=== PATIENT | male | born 1940 | race Caucasian/White ===

== ENCOUNTER 2022-11-17 08:23 | Observation (INO) | payer MEDICARE, BC ==
[2022-11-17 09:03] LABS: Hemoglobin 14.8 g/dL (13.5-17.5); Mean Corpuscular HGB CONC 34.7 g/dL (32.0-36.0); Mean Corpuscular Hemoglobin 31.1 pg (27.0-33.0); Mean Corpuscular Volume 89.7 fl (81.2-95.1); Mean Platelet Volume 9.6 fl (7.4-10.4); Platelet Count 214 10x3/uL (150-450); RBC Distribution Width 13.2 % (11.5-14.5); Red Blood Cell (RBC) Count 4.76 10x6/uL (4.32-5.72); White Blood Cell (WBC) Count 23.3 10x3/uL (3.5-10.5)
[2022-11-17 09:06] LABS: MDiff Complete? YES
[2022-11-17 09:22] LABS: ALT (SGPT) 20 U/L (8-55); AST (SGOT) 17 U/L (5-34); Albumin 4.1 g/dL (3.4-4.8); Alkaline Phosphatase 71 U/L (40-110); Anion Gap 13 mmol/L (10-20); BUN (Urea Nitrogen) 14 mg/dL (8.4-25.7); Bilirubin, Total 0.9 mg/dL (0.2-1.2); CK (CPK) 111 U/L (30-200); Calc. Creatinine Clearance 0 mL/min (70-130); Calcium 8.8 mg/dL (7.8-10.44); Carbon Dioxide 23 mmol/L (23-31); Chloride 105 mmol/L (98-107); Estimated GFR 71; Globulin 2.2 g/dL (2.4-3.5); Glucose 143 mg/dL (83-110); Lipase 34 U/L (8-78); Potassium 4.4 mmol/L (3.5-5.1); Protein, Total 6.3 g/dL (5.8-8.1); Sodium 137 mmol/L (136-145)
[2022-11-17 09:41] LABS: Band 1 % (5-11); Monocytes 2 % (0-10)
[2022-11-17 09:42] LABS: Lymphocytes 60 % (21-51); Neutrophil 36 % (42-75); Platelet Morphology Comment Appears Adequate
[2022-11-17 09:43] LABS: RBC Morphology Normal
[2022-11-17 10:35] LABS: Bilirubin Neg (Negative); Blood, Urine Negative (Negative); Clarity Clear (Clear); Glucose, Urine (Dipstick) Normal (Negative); Ketone, Urine Negative (Negative); Leukocyte Negative (Negative); Nitrite Negative (Negative); Protein, Urine (Dipstick) Negative (Neg-Trace); Urobilinogen Normal mg/dL (Less than 2)
[2022-11-17] MEDS ORDERED: Ondansetron ODT 4 MG TAB PO PRN (11:31)
[2022-11-17] MEDS ORDERED: Acetaminophen 325 MG TAB PO PRN (11:31)
[2022-11-17] MEDS ORDERED: Ondansetron PF 4 MG/2 ML Vial IVP PRN (11:31)
[2022-11-17 12:05] LABS: Magnesium 2.1 mg/dL (1.6-2.6)
[2022-11-17 12:10] LABS: Troponin I Less than 0.010 ng/mL (< 0.028)
[2022-11-17] MEDS ORDERED: Iopamidol 370 76% 100 ML VIAL ONE (13:40)
[2022-11-17 14:35] VITALS: BMI 26.6
[2022-11-17 15:41] LABS: SARS-CoV-2 NAA Rapid Test Not Detected (NotDetected)
[2022-11-17 17:19] LABS: Hemoglobin A1c 5.9 % (4.0-6.0)
[2022-11-18 05:56] LABS: Hemoglobin 13.6 g/dL (13.5-17.5); Mean Corpuscular HGB CONC 35.2 g/dL (32.0-36.0); Mean Corpuscular Hemoglobin 31.3 pg (27.0-33.0); Mean Corpuscular Volume 88.9 fl (81.2-95.1); Mean Platelet Volume 9.3 fl (7.4-10.4); Platelet Count 197 10x3/uL (150-450); RBC Distribution Width 13.4 % (11.5-14.5); Red Blood Cell (RBC) Count 4.34 10x6/uL (4.32-5.72); White Blood Cell (WBC) Count 14.6 10x3/uL (3.5-10.5)
[2022-11-18 05:57] LABS: MDiff Complete? YES
[2022-11-18 06:06] LABS: Anion Gap 10 mmol/L (10-20); BUN (Urea Nitrogen) 11 mg/dL (8.4-25.7); Calc. Creatinine Clearance 72 mL/min (70-130); Calcium 8.7 mg/dL (7.8-10.44); Carbon Dioxide 25 mmol/L (23-31); Chloride 107 mmol/L (98-107); Estimated GFR 86; Glucose 123 mg/dL (83-110); Potassium 3.9 mmol/L (3.5-5.1); Sodium 138 mmol/L (136-145)
[2022-11-18 06:21] LABS: Eosinophils 3 % (0-10); Lymphocytes 59 % (21-51); Monocytes 5 % (0-10); Neutrophil 33 % (42-75)
[2022-11-18] MEDS ORDERED: Amlodipine 5 MG TAB PO SCH (11:30)
[2022-11-18] MEDS ORDERED: Lisinopril 20 MG TAB PO SCH (11:30)
[2022-11-18] MEDS ORDERED: Iopamidol 370 76% 100 ML VIAL ONE (15:24)
[2022-11-18 16:56] VITALS: BP 156/64
[2022-11-18 18:07] VITALS: TEMP 97.7
[2022-11-19] MEDS ORDERED: Lisinopril 20 MG TAB PO SCH (09:00)
[2022-11-19] MEDS ORDERED: Amlodipine 5 MG TAB PO SCH (09:00)
== END 2022-11-18 18:00 | disposition home or self-care (01) ==
LOC: CSHERS 08:23 → CSHTELE 13:13
PROVIDERS: ADMIT Internal Medicine; ATTEND Hospitalist
DX: R42 Dizziness and giddiness (principal); I95.9 Hypotension, unspecified; R00.1 Bradycardia, unspecified; R73.9 Hyperglycemia, unspecified; D72.829 Elevated white blood cell count, unspecified; E04.1 Nontoxic single thyroid nodule; Z20.822 Contact with and (suspected) exposure to COVID-19
CPT/HCPCS: 0240U; 70498; 71045; 71275; 80048; 81003; 82550; 83036; 83605; 83690; 83735; 83880; 84484 ×2; 85025; 85379; 87040; 93005; 93306; 93880; 94760 ×3; 97116; 99285; G0378 ×3; 36415; 80053; 84443; Q9967

== ENCOUNTER 2023-09-01 09:17 | Inpatient (IN) | payer MEDICARE, BC ==
[2023-09-01 12:24] LABS: INR-International Normal Ratio 1.1; PTT 29.9 sec (22.0-33.0); Prothrombin Time 12.1 sec (9.5-12.1)
[2023-09-01 12:28] LABS: ALT (SGPT) 85 U/L (8-55); AST (SGOT) 49 U/L (5-34); Albumin 3.5 g/dL (3.4-4.8); Alkaline Phosphatase 65 U/L (40-110); Anion Gap 14 mmol/L (10-20); BUN (Urea Nitrogen) 28 mg/dL (8.4-25.7); Bilirubin, Total 1.1 mg/dL (0.2-1.2); Calc. Creatinine Clearance 0 mL/min (70-130); Calcium 8.4 mg/dL (7.8-10.44); Carbon Dioxide 20 mmol/L (23-31); Chloride 107 mmol/L (98-107); Estimated GFR 86; Globulin 2.1 g/dL (2.4-3.5); Glucose 97 mg/dL (83-110); Protein, Total 5.6 g/dL (5.8-8.1); Sodium 137 mmol/L (136-145)
[2023-09-01 12:33] LABS: Troponin I 0.125 ng/mL (< 0.028)
[2023-09-01 12:42] LABS: Hematocrit 34.4 % (38.8-50.0); Hemoglobin 11.8 g/dL (13.5-17.5); Mean Corpuscular HGB CONC 34.3 g/dL (32.0-36.0); Mean Corpuscular Hemoglobin 30.9 pg (27.0-33.0); Mean Corpuscular Volume 90.1 fl (81.2-95.1); Mean Platelet Volume 10.2 fl (7.4-10.4); Platelet Count 177 10x3/uL (150-450); RBC Distribution Width 13.2 % (11.5-14.5); Red Blood Cell (RBC) Count 3.82 10x6/uL (4.32-5.72)
[2023-09-01 12:43] LABS: MDiff Complete? YES
[2023-09-01] MEDS ORDERED: Ondansetron PF 4 MG/2 ML Vial IVP PRN (13:31)
[2023-09-01] MEDS ORDERED: Acetaminophen 325 MG TAB PO PRN (13:31)
[2023-09-01] MEDS ORDERED: Ondansetron ODT 4 MG TAB PO PRN (13:31)
[2023-09-01] MEDS ORDERED: Acetaminophen 650 MG Suppository PR PRN (13:31)
[2023-09-01 14:18] LABS: Band 11 % (5-11); Eosinophils 1 % (0-10); Lymphocytes 37 % (21-51); Monocytes 3 % (0-10); Neutrophil 40 % (42-75); Reactive Lymphocytes 8 % (0-10)
[2023-09-01 14:23] LABS: Microcytosis SLIGHT = 6-15 cells (100X) (0-5/hpf)
[2023-09-01 14:24] LABS: Large Platelets SLIGHT (None Seen); Platelet Adequacy Comment Appears Adequate; RBC Morph Comment Within Normal Limits
[2023-09-01] MEDS ORDERED: Apixaban 5 MG TAB PO SCH ×3 (15:00→23:00)
[2023-09-01 15:07] VITALS: BMI 26.3
[2023-09-01] MEDS: Cephalexin 500 MG CAP PO SCH ×2 (18:00→23:35)
[2023-09-01] MEDS: Doxycycline 100 MG CAP PO SCH (20:45)
[2023-09-01] MEDS: Famotidine 20 MG TAB PO SCH (20:45)
[2023-09-02 03:53] LABS: Anion Gap 12 mmol/L (10-20); BUN (Urea Nitrogen) 25 mg/dL (8.4-25.7); Calc. Creatinine Clearance 79 mL/min (70-130); Calcium 8.3 mg/dL (7.8-10.44); Carbon Dioxide 21 mmol/L (23-31); Chloride 108 mmol/L (98-107); Estimated GFR 89; Glucose 122 mg/dL (83-110); Potassium 3.9 mmol/L (3.5-5.1); Sodium 137 mmol/L (136-145)
[2023-09-02 03:58] LABS: #Eosinphils 0.1 10x3/uL (0.0-0.5); #Monocytes 1.3 10x3/uL (0.0-1.1); #Neutrophils 5.7 10x3/uL (1.5-8.4); %Basophils 0.3 % (0.0-2.0); %Eosinophils 0.9 % (0.0-6.0); %Lymphocytes 44.6 % (18.0-47.0); %Monocytes 10.2 % (0.0-10.0); %Neutrophils 43.6 % (40.0-75.0); Hematocrit 30.2 % (38.8-50.0); Hemoglobin 10.3 g/dL (13.5-17.5); Mean Corpuscular HGB CONC 34.1 g/dL (32.0-36.0); Mean Corpuscular Hemoglobin 31.1 pg (27.0-33.0); Mean Corpuscular Volume 91.2 fl (81.2-95.1); Mean Platelet Volume 10.5 fl (7.4-10.4); Platelet Count 157 10x3/uL (150-450); RBC Distribution Width 13.2 % (11.5-14.5); Red Blood Cell (RBC) Count 3.31 10x6/uL (4.32-5.72); White Blood Cell (WBC) Count 13.2 10x3/uL (3.5-10.5)
[2023-09-02] MEDS: Cephalexin 500 MG CAP PO SCH ×3 (05:32→18:27)
[2023-09-02] MEDS ORDERED: FLU VACC QS2023(65UP)/MF59C/PF 60 MCG/0.5 ML SYRINGE IM ONE (09:00)
[2023-09-02] MEDS: Apixaban 5 MG TAB PO SCH ×2 (09:07→20:56)
[2023-09-02] MEDS: Famotidine 20 MG TAB PO SCH ×2 (09:08→20:56)
[2023-09-02] MEDS: Clopidogrel Bisulfate 75 MG TAB PO SCH (09:08)
[2023-09-02] MEDS: Doxycycline 100 MG CAP PO SCH ×2 (09:08→20:56)
[2023-09-02] MEDS ORDERED: Lisinopril 20 MG TAB PO SCH (10:30)
[2023-09-02] MEDS ORDERED: Amlodipine 5 MG TAB PO SCH (10:30)
[2023-09-02] MEDS: Atorvastatin Calcium 40 MG TAB PO SCH (20:56)
[2023-09-03] MEDS: Cephalexin 500 MG CAP PO SCH ×4 (02:02→18:19)
[2023-09-03] MEDS: Amlodipine 5 MG TAB PO SCH (08:45)
[2023-09-03] MEDS: Lisinopril 20 MG TAB PO SCH (08:49)
[2023-09-03] MEDS: Famotidine 20 MG TAB PO SCH ×2 (08:49→22:11)
[2023-09-03] MEDS: Clopidogrel Bisulfate 75 MG TAB PO SCH (08:50)
[2023-09-03] MEDS: Apixaban 5 MG TAB PO SCH ×2 (08:50→22:11)
[2023-09-03] MEDS: Digoxin 0.5 MG/2 ML AMP SLOW IVP SCH ×2 (08:50→09:30)
[2023-09-03] MEDS ORDERED: Amiodarone In Dextrose 150 MG in Premix 1 BAG IVPB SCH (09:30)
[2023-09-03] MEDS: Amiodarone In Dextrose 360 MG in Premix 1 BAG IVPB SCH ×2 (10:18→16:47)
[2023-09-03 10:22] LABS: Anion Gap 15 mmol/L (10-20); BUN (Urea Nitrogen) 25 mg/dL (8.4-25.7); Calc. Creatinine Clearance 75 mL/min (70-130); Calcium 8.7 mg/dL (7.8-10.44); Carbon Dioxide 20 mmol/L (23-31); Chloride 105 mmol/L (98-107); Estimated GFR 88; Glucose 154 mg/dL (83-110); Magnesium 2.1 mg/dL (1.6-2.6); Potassium 4.1 mmol/L (3.5-5.1); Sodium 136 mmol/L (136-145)
[2023-09-03] MEDS: Atorvastatin Calcium 40 MG TAB PO SCH (22:11)
[2023-09-04] MEDS: Cephalexin 500 MG CAP PO SCH ×2 (01:47→06:31)
[2023-09-04] MEDS: Amiodarone In Dextrose 360 MG in Premix 1 BAG IVPB SCH (01:51)
[2023-09-04 05:55] LABS: Anion Gap 12 mmol/L (10-20); BUN (Urea Nitrogen) 22 mg/dL (8.4-25.7); Calc. Creatinine Clearance 83 mL/min (70-130); Calcium 8.5 mg/dL (7.8-10.44); Carbon Dioxide 21 mmol/L (23-31); Chloride 104 mmol/L (98-107); Estimated GFR 90; Glucose 119 mg/dL (83-110); Magnesium 2.1 mg/dL (1.6-2.6); Sodium 133 mmol/L (136-145)
[2023-09-04] MEDS ORDERED: Polyethylene Glycol 3350 17 GM Packet PO PRN (08:08)
[2023-09-04] MEDS ORDERED: Senokot S 8.6-50 MG TAB PO SCH (09:00)
[2023-09-04] MEDS ORDERED: dilTIAZem CD 120 MG CAP PO SCH (09:00)
[2023-09-04] MEDS: Apixaban 5 MG TAB PO SCH (09:05)
[2023-09-04] MEDS: Clopidogrel Bisulfate 75 MG TAB PO SCH (09:05)
[2023-09-04] MEDS: Famotidine 20 MG TAB PO SCH (09:05)
[2023-09-04] MEDS: Lisinopril 20 MG TAB PO SCH (09:05)
[2023-09-04] MEDS: Amlodipine 5 MG TAB PO SCH (09:05)
[2023-09-04 12:21] VITALS: BP 143/67; TEMP 97.7
[2023-09-08] MEDS ORDERED: Apixaban 5 MG TAB PO SCH (09:00)
== END 2023-09-04 14:50 | disposition home or self-care (01) | DRG 299 ==
LOC: CSHERS 09:17 → INTOOBSV 14:29 → CSHTELE 14:29 → OBSVTOIN 09-03 08:34
PROVIDERS: ADMIT Family Medicine; ATTEND Hospitalist
DX: I82.621 Acute embolism and thrombosis of deep veins of right upper extremity (principal); J96.01 Acute respiratory failure with hypoxia; I10 Essential (primary) hypertension; Z98.890 Other specified postprocedural states; Z79.899 Other long term (current) drug therapy; Z79.82 Long term (current) use of aspirin; R79.89 Other specified abnormal findings of blood chemistry; I35.0 Nonrheumatic aortic (valve) stenosis; E78.5 Hyperlipidemia, unspecified; I48.91 Unspecified atrial fibrillation
CPT/HCPCS: 36415; 71045; 80048; 80053; 83735; 83880; 84484; 85025; 85610; 85730; 93005; G0378; J0283; J1160

== ENCOUNTER 2023-09-29 18:42 | Emergency (ER) | payer MEDICARE, BC ==
[2023-09-29 20:10] LABS: Hematocrit 35.2 % (38.8-50.0); Hemoglobin 12.1 g/dL (13.5-17.5); Mean Corpuscular HGB CONC 34.4 g/dL (32.0-36.0); Mean Corpuscular Hemoglobin 30.4 pg (27.0-33.0); Mean Corpuscular Volume 88.4 fl (81.2-95.1); Mean Platelet Volume 9.5 fl (7.4-10.4); Platelet Count 201 10x3/uL (150-450); RBC Distribution Width 13.5 % (11.5-14.5); Red Blood Cell (RBC) Count 3.98 10x6/uL (4.32-5.72); White Blood Cell (WBC) Count 15.9 10x3/uL (3.5-10.5)
[2023-09-29 20:14] LABS: Anion Gap 14 mmol/L (10-20); BUN (Urea Nitrogen) 11 mg/dL (8.4-25.7); Calc. Creatinine Clearance 0 mL/min (70-130); Calcium 9.1 mg/dL (7.8-10.44); Carbon Dioxide 22 mmol/L (23-31); Chloride 105 mmol/L (98-107); Estimated GFR 87; Glucose 113 mg/dL (83-110); Potassium 4.1 mmol/L (3.5-5.1); Sodium 137 mmol/L (136-145)
[2023-09-29 20:49] LABS: MDiff Complete? YES
[2023-09-29 21:02] LABS: Eosinophils 1 % (0-10); Lymphocytes 51 % (21-51); Neutrophil 48 % (42-75)
[2023-09-29 21:08] LABS: Platelet Adequacy Comment Appears Adequate; RBC Morph Comment Within Normal Limits
[2023-09-29 21:23] LABS: Bilirubin Neg (Negative); Blood, Urine Negative (Negative); Clarity Clear (Clear); Glucose, Urine (Dipstick) Normal (Negative); Ketone, Urine Negative (Negative); Leukocyte Negative (Negative); Nitrite Negative (Negative); Protein, Urine (Dipstick) Negative (Neg-Trace); Specific Gravity, Urine 1.015 (1.005-1.030); Urobilinogen Normal mg/dL (Less than 2)
[2023-09-29 21:45] LABS: CAUTI Indications for Culture Alt mental st,lethar; RBC/HPF 0-3 HPF (0-3); Squamous Epithelial 0-3 HPF (0-3); WBC/HPF None Seen HPF (0-3)
[2023-09-29 21:46] LABS: Bacteria/HPF Rare-Few HPF (None Seen); Urine Culture Reflex No No
== END 2023-09-29 21:49 | disposition home or self-care (01) ==
LOC: CSHERS 18:42
DX: I10 Essential (primary) hypertension (principal); C95.10 Chronic leukemia of unspecified cell type not having achieved remission; Z95.0 Presence of cardiac pacemaker
CPT/HCPCS: 36415; 71045; 80048; 81001; 85025; 93005

== ENCOUNTER 2024-07-14 12:07 | Inpatient (IN) | payer MEDICARE, BC ==
[2024-07-14 13:51] LABS: Hemoglobin 12.6 g/dL (13.5-17.5); Mean Corpuscular HGB CONC 34.1 g/dL (32.0-36.0); Mean Corpuscular Hemoglobin 30.4 pg (27.0-33.0); Mean Corpuscular Volume 89.2 fL (81.2-95.1); Platelet Count 181 10x3/uL (150-450); RBC Distribution Width 13.1 % (11.5-14.5); Red Blood Cell (RBC) Count 4.15 10x6/uL (4.32-5.72); White Blood Cell (WBC) Count 12.5 10x3/uL (3.5-10.5)
[2024-07-14 13:52] LABS: MDiff Complete? YES
[2024-07-14 14:08] LABS: ALT (SGPT) 21 U/L (8-55); AST (SGOT) 18 U/L (5-34); Albumin 3.9 g/dL (3.4-4.8); Alkaline Phosphatase 64 U/L (40-110); Anion Gap 13 mmol/L (10-20); BUN (Urea Nitrogen) 16 mg/dL (8.4-25.7); Bilirubin, Total 0.6 mg/dL (0.2-1.2); Calc. Creatinine Clearance 0 mL/min (70-130); Calcium 9.3 mg/dL (7.8-10.44); Carbon Dioxide 22 mmol/L (23-31); Chloride 102 mmol/L (98-107); Estimated GFR 73; Globulin 2.7 g/dL (2.4-3.5); Glucose 113 mg/dL (83-110); Potassium 4.2 mmol/L (3.5-5.1); Protein, Total 6.6 g/dL (5.8-8.1); Sodium 133 mmol/L (136-145)
[2024-07-14 14:11] LABS: Troponin I 0.012 ng/mL (< 0.028)
[2024-07-14 14:29] LABS: Band 2 % (5-11); Eosinophils 1 % (0-10); Lymphocytes 51 % (21-51); Monocytes 4 % (0-10); Neutrophil 37 % (42-75); Reactive Lymphocytes 5 % (0-10)
[2024-07-14 14:30] LABS: Platelet Adequacy Comment Appears Adequate; RBC Morph Comment Within Normal Limits
[2024-07-14] MEDS ORDERED: Labetalol HCl 100 MG/20 ML VIAL ONE (14:39)
[2024-07-14] MEDS ORDERED: hydrALAZINE 20 MG/ML VIAL ONE (16:37)
[2024-07-14] MEDS ORDERED: Aspirin 325 MG TAB ONE (16:38)
[2024-07-14] MEDS ORDERED: niCARdipine 25 MG/10 ML SDV ONE (16:55)
[2024-07-14] MEDS ORDERED: niCARdipine 25 MG in Sodium Chloride 0.9% 250 ML 250 ML IVPB SCH (21:00)
[2024-07-14] MEDS ORDERED: hydrALAZINE 25 MG TAB ONE (23:52)
[2024-07-14] MEDS ORDERED: Tamsulosin HCl 0.4 MG CAP ONE (23:53)
[2024-07-14] MEDS ORDERED: Apixaban 5 MG TAB ONE (23:53)
[2024-07-15] MEDS: hydrALAZINE 25 MG TAB PO SCH
[2024-07-15] MEDS: Tamsulosin HCl 0.4 MG CAP PO SCH
[2024-07-15] MEDS: Apixaban 5 MG TAB PO SCH
[2024-07-15] MEDS ORDERED: niCARdipine 25 MG/10 ML SDV ONE (03:32)
[2024-07-15 04:14] LABS: #Basophils 0.06 10x3/uL (0.0-0.2); #Monocytes 0.84 10x3/uL (0.0-1.1); #Neutrophils 4.51 10x3/uL (1.5-8.4); %Basophils 0.5 % (0.0-2.0); %Eosinophils 1.8 % (0.0-6.0); %Lymphocytes 49.9 % (18.0-47.0); %Monocytes 7.4 % (0.0-10.0); Hematocrit 36.5 % (38.8-50.0); Hemoglobin 12.7 g/dL (13.5-17.5); Mean Corpuscular HGB CONC 34.8 g/dL (32.0-36.0); Mean Corpuscular Hemoglobin 30.6 pg (27.0-33.0); Mean Platelet Volume 9.2 fL (7.4-10.4); Platelet Count 186 10x3/uL (150-450); RBC Distribution Width 13.4 % (11.5-14.5); Red Blood Cell (RBC) Count 4.15 10x6/uL (4.32-5.72); White Blood Cell (WBC) Count 11.3 10x3/uL (3.5-10.5)
[2024-07-15 04:26] LABS: Anion Gap 12 mmol/L (10-20); BUN (Urea Nitrogen) 15 mg/dL (8.4-25.7); Calc. Creatinine Clearance 0 mL/min (70-130); Carbon Dioxide 22 mmol/L (23-31); Chloride 104 mmol/L (98-107); Estimated GFR 86; Glucose 107 mg/dL (83-110); Potassium 3.8 mmol/L (3.5-5.1); Sodium 134 mmol/L (136-145)
[2024-07-15] MEDS ORDERED: Apixaban 5 MG TAB ONE (08:00)
[2024-07-15] MEDS ORDERED: hydrALAZINE 25 MG TAB ONE (08:00)
[2024-07-15] MEDS ORDERED: Clopidogrel Bisulfate 75 MG TAB ONE (08:00)
[2024-07-15] MEDS ORDERED: Carvedilol 25 MG TAB ONE (08:01)
[2024-07-15] MEDS: Carvedilol 25 MG TAB PO SCH (08:33)
[2024-07-15] MEDS: Clopidogrel Bisulfate 75 MG TAB PO SCH (08:33)
[2024-07-15] MEDS: Valsartan 80 MG TAB PO SCH (08:35)
[2024-07-15] MEDS ORDERED: Valsartan 80 MG TAB PO SCH (09:00)
[2024-07-15] MEDS ORDERED: Communication Order-Pharmacy FS SCH (10:15)
[2024-07-15 14:02] VITALS: BMI 26.6
[2024-07-15] MEDS ORDERED: Polyethylene Glycol 3350 17 GM Packet PO PRN (14:30)
[2024-07-15 19:32] LABS: Bilirubin Neg (Negative); Blood, Urine Negative (Negative); Glucose, Urine (Dipstick) 50 mg/dL (Negative); Ketone, Urine Negative (Negative); Leukocyte Negative (Negative); Nitrite Negative (Negative); Protein, Urine (Dipstick) 30 mg/dl (Neg-Trace); Urobilinogen Normal mg/dL (Less than 2)
[2024-07-15 19:34] LABS: Clarity Clear (Clear)
[2024-07-15] MEDS: Pantoprazole DR 40 MG TAB PO SCH (20:00)
[2024-07-15 20:51] LABS: Bacteria/HPF Rare-Few HPF (None Seen); RBC/HPF 0-3 HPF (0-3); Squamous Epithelial 0-3 HPF (0-3); WBC/HPF 0-3 HPF (0-3)
[2024-07-15] MEDS ORDERED: Senokot S 8.6-50 MG TAB PO SCH (21:00)
[2024-07-16 05:12] LABS: #Basophils 0.06 10x3/uL (0.0-0.2); #Eosinophils 0.18 10x3/uL (0.0-0.5); #Monocytes 1.05 10x3/uL (0.0-1.1); #Neutrophils 5.25 10x3/uL (1.5-8.4); %Basophils 0.5 % (0.0-2.0); %Eosinophils 1.4 % (0.0-6.0); %Lymphocytes 48.9 % (18.0-47.0); %Monocytes 8.2 % (0.0-10.0); %Neutrophils 40.7 % (40.0-75.0); Hematocrit 35.7 % (38.8-50.0); Hemoglobin 12.5 g/dL (13.5-17.5); Mean Corpuscular Hemoglobin 31.2 pg (27.0-33.0); Mean Platelet Volume 9.1 fL (7.4-10.4); Platelet Count 193 10x3/uL (150-450); RBC Distribution Width 13.4 % (11.5-14.5); Red Blood Cell (RBC) Count 4.01 10x6/uL (4.32-5.72); White Blood Cell (WBC) Count 12.9 10x3/uL (3.5-10.5)
[2024-07-16 05:24] LABS: INR-International Normal Ratio 1.1; PTT 26.3 sec (22.0-33.0); Prothrombin Time 11.7 sec (9.5-12.1)
[2024-07-16 05:33] LABS: ALT (SGPT) 19 U/L (8-55); AST (SGOT) 13 U/L (5-34); Albumin 3.5 g/dL (3.4-4.8); Alkaline Phosphatase 58 U/L (40-110); Anion Gap 14 mmol/L (10-20); BUN (Urea Nitrogen) 18 mg/dL (8.4-25.7); Bilirubin, Total 0.6 mg/dL (0.2-1.2); Calc. Creatinine Clearance 68 mL/min (70-130); Calcium 8.8 mg/dL (7.8-10.44); Carbon Dioxide 20 mmol/L (23-31); Chloride 105 mmol/L (98-107); Estimated GFR 85; Globulin 2.4 g/dL (2.4-3.5); Glucose 105 mg/dL (83-110); Magnesium 2.2 mg/dL (1.6-2.6); Potassium 3.9 mmol/L (3.5-5.1); Protein, Total 5.9 g/dL (5.8-8.1); Sodium 135 mmol/L (136-145)
[2024-07-16] MEDS ORDERED: Iopamidol 300 61% 100 ML VIAL FS ONE (11:11)
[2024-07-16] MEDS ORDERED: Heparin 10,000 UNITS/ 10 ML VIAL ONE (11:47)
[2024-07-16] MEDS ORDERED: Lidocaine 1% (PF) 30 ML VIAL ONE (11:47)
[2024-07-16 12:54] LABS: Hemoglobin A1c 6.1 % (4.0-6.0)
[2024-07-16] MEDS ORDERED: fentaNYL 50 mcg/mL 1 mL Vial ONE (12:57)
[2024-07-16] MEDS ORDERED: Midazolam HCl 2 mg/2 ml Vial ONE (12:58)
[2024-07-16] MEDS ORDERED: Nitroglycerin 0.4 MG TAB (25 Tab Bottle) SL PRN (14:36)
[2024-07-16] MEDS ORDERED: Acetaminophen/Codeine 30-300mg Tablet PO PRN ×2 (14:36)
[2024-07-16] MEDS ORDERED: Sodium Chloride 0.9% 200 ML IV PRN (14:36)
[2024-07-16] MEDS: hydrALAZINE 20 MG/ML VIAL SLOW IVP SCH (19:36)
[2024-07-16] MEDS: Apixaban 5 MG TAB PO SCH (20:17)
[2024-07-16] MEDS: Atorvastatin Calcium 40 MG TAB PO SCH (20:18)
[2024-07-16] MEDS: Acetaminophen 325 MG TAB PO PRN (21:19)
[2024-07-17 04:15] LABS: #Basophils 0.04 10x3/uL (0.0-0.2); #Eosinophils 0.17 10x3/uL (0.0-0.5); #Monocytes 1.01 10x3/uL (0.0-1.1); %Basophils 0.3 % (0.0-2.0); %Eosinophils 1.3 % (0.0-6.0); %Lymphocytes 38.9 % (18.0-47.0); %Neutrophils 51.3 % (40.0-75.0); Hematocrit 32.9 % (38.8-50.0); Hemoglobin 11.5 g/dL (13.5-17.5); Mean Corpuscular Hemoglobin 31.3 pg (27.0-33.0); Mean Corpuscular Volume 89.6 fL (81.2-95.1); Mean Platelet Volume 9.4 fL (7.4-10.4); Platelet Count 188 10x3/uL (150-450); RBC Distribution Width 13.3 % (11.5-14.5); Red Blood Cell (RBC) Count 3.67 10x6/uL (4.32-5.72); White Blood Cell (WBC) Count 12.7 10x3/uL (3.5-10.5)
[2024-07-17 04:27] LABS: Anion Gap 13 mmol/L (10-20); BUN (Urea Nitrogen) 21 mg/dL (8.4-25.7); Calc. Creatinine Clearance 63 mL/min (70-130); Calcium 8.4 mg/dL (7.8-10.44); Carbon Dioxide 20 mmol/L (23-31); Chloride 105 mmol/L (98-107); Estimated GFR 79; Glucose 110 mg/dL (83-110); Iron 41 ug/dL (65-175); Iron Binding Capacity, Total 218 mcg/dL (261-462); Magnesium 2.1 mg/dL (1.6-2.6); Potassium 3.8 mmol/L (3.5-5.1); Sodium 134 mmol/L (136-145)
[2024-07-17 04:28] LABS: Iron 41 ug/dL (65-175); Iron Binding Capacity, Total 216 mcg/dL (261-462)
[2024-07-17 12:14] VITALS: BP 173/82; TEMP 98.1
[2024-07-17] MEDS ORDERED: Senokot S 8.6-50 MG TAB PO SCH (21:00)
== END 2024-07-17 14:14 | disposition home or self-care (01) | DRG 253 ==
LOC: CSHERS 12:07 → CSHERHOLD 18:02 → CSHTELE 07-15 13:49
PROVIDERS: ADMIT Family Medicine; ATTEND Family Medicine
PROC: 047934Z Dilation of Right Renal Artery with Drug-eluting Intraluminal Device, Percutaneous Approach (ICD-10-PCS; principal; 2024-07-16)
PROC: 047A3ZZ Dilation of Left Renal Artery, Percutaneous Approach (ICD-10-PCS; 2024-07-16)
PROC: B4101ZZ Fluoroscopy of Abdominal Aorta using Low Osmolar Contrast (ICD-10-PCS; 2024-07-16)
DX: T82.856A Stenosis of peripheral vascular stent, initial encounter (principal); C91.10 Chronic lymphocytic leukemia of B-cell type not having achieved remission; I16.1 Hypertensive emergency; I16.0 Hypertensive urgency; I10 Essential (primary) hypertension; I73.9 Peripheral vascular disease, unspecified; I70.1 Atherosclerosis of renal artery; I65.29 Occlusion and stenosis of unspecified carotid artery; D64.9 Anemia, unspecified; N40.0 Benign prostatic hyperplasia without lower urinary tract symptoms; I48.0 Paroxysmal atrial fibrillation; K59.00 Constipation, unspecified; I15.0 Renovascular hypertension; Z79.82 Long term (current) use of aspirin; Z79.899 Other long term (current) drug therapy; Z79.01 Long term (current) use of anticoagulants; Z98.890 Other specified postprocedural states; Z95.0 Presence of cardiac pacemaker; Z98.49 Cataract extraction status, unspecified eye
CPT/HCPCS: 36252; 36415; 37236; 37246; 70450; 71045; 75625; 80048; 80053; 81001; 82607; 82728; 83036; 83540; 83550; 83735; 83880; 84443; 84484; 85025; 85046; 85347; 85610; 85730; 93005; 96374; 96375; 99152; 99153; C1725; C1760; C1769; C1874; C1887; C1894; J0360; J1644; J2001; J2250; J3010; Q9967